=== PATIENT | female | born 1955 | race Caucasian/White ===

== ENCOUNTER 2016-08-01 16:21 | Day surgery (SDC) | payer OTHER ==
[~2016-08-01] VITALS: Ht 152.4 cm; Wt 65.2 kg
[~2016-08-01 16:21] MED LIST: ATACAND8 MG PO; FOSAMAX 70MG TA70 MG PO; OS-CAL 500 + D1 TAB PO
[2016-08-01] MEDS ORDERED: OMEGA 31000 MG PO (16:22)
[2016-08-01 16:36] VITALS: BP 139/89; PULSE 97; TEMP 97.6
[2016-08-01 19:37] VITALS: BP 127/80; PULSE 99; TEMP 97.8
[2016-08-01 19:45] VITALS: BP 133/83; PULSE 99; TEMP 97.6
[2016-08-01 20:00] VITALS: BP 129/79; PULSE 98; TEMP 98
== END 2016-08-01 20:10 | disposition home or self-care (01) ==
LOC: SDCO 16:21
DX: N20.1 Calculus of ureter (principal); Z87.442 Personal history of urinary calculi
CPT/HCPCS: C1769; C2617; J0690; J1100; J2405; J2704; J3010; J7120; Q9967

== ENCOUNTER 2016-08-09 05:59 | Day surgery (SDC) | payer OTHER ==
[~2016-08-09] VITALS: Ht 152.4 cm; Wt 63.9 kg
[~2016-08-09 05:59] MED LIST changes: +OMEGA 31000 MG PO
[2016-08-09 06:46] VITALS: BP 1418/66; PULSE 92; TEMP 97.3
[2016-08-09] MEDS ORDERED: BONIVA150 MG PO (06:54)
[2016-08-09 09:40] VITALS: BP 99/54; PULSE 84; TEMP 97.2
[2016-08-09] MEDS ORDERED: PYRIDIUM 100MG100 MG PO (09:54)
[2016-08-09] MEDS ORDERED: NORCO 325 MG-51 TAB PO (09:54)
[2016-08-09 09:55] VITALS: BP 108/55; PULSE 83
== END 2016-08-09 10:30 | disposition home or self-care (01) ==
LOC: SDCO 05:59
DX: N20.0 Calculus of kidney (principal); Z87.442 Personal history of urinary calculi; Z79.899 Other long term (current) drug therapy
CPT/HCPCS: C1769; J0690; J1100; J2405; J2704; J3010; J7120